=== PATIENT | male | born 1980 | race Hispanic/Latino ===

== ENCOUNTER 2017-04-25 22:16 | Inpatient (IN) | payer MEDICAID ==
--- NOTE | 2017-04-25 22:51 | ED PDOC ---
HPI: Psych/Substance Abuse Time Seen by Provider: 04/25/17 22:33 Chief Complaint (Nursing): Psychiatric Evaluation History Per: Patient (states he is depressed and has suicidal thoughts. He states that he would attempt to hang himself or cut his wrist. He denies hearing voices.) History/Exam Limitations: no limitations Onset/Duration Of Symptoms: Waxing/Waning Current Symptoms Are (Timing): Still Present Involuntary Hold By: None Past Medical History Reviewed: Historical Data, Nursing Documentation, Vital Signs Vital Signs: Last Vital Signs Temp 98.5 F 04/25/17 22:18 Pulse 102 H 04/25/17 22:18 Resp 18 04/25/17 22:18 BP 120/85 04/25/17 22:18 Pulse Ox 97 04/25/17 22:18 - Medical History PMH: Depression - Surgical History Surgical History: No Surg Hx - Family History Family History: States: No Known Family Hx - Living Arrangements Living Arrangements: Alone - Social History Current smoker - smoking cessation education provided: Yes Alcohol: Social - Immunization History Hx Tetanus Toxoid Vaccination: No Hx Influenza Vaccination: No Hx Pneumococcal Vaccination: No - Home Medications Home Medications: Ambulatory Orders Medication Instructions Recorded Citalopram [celEXA] 20 mg PO DAILY #30 tab 04/21/17 Gabapentin [Neurontin] 300 mg PO TID #90 cap 04/21/17 - Allergies Allergies/Adverse Reactions: Allergies Allergy/AdvReac Type Severity Reaction Status Date / Time No Known Allergies Allergy Unverified 04/21/17 17:52 Review of Systems ROS Statement: Except As Marked, All Systems Reviewed And Found Negative Psych: Positive for: Depression, Suicidal ideation. Negative for: Anxiety - Laboratory Results Result Diagrams: 04/25/17 23:05 04/25/17 23:05 - ECG O2 Sat by Pulse Oximetry: 97 Disposition - Clinical Impression Clinical Impression: Depression, Alcohol abuse - Patient ED Disposition Is Patient to be Admitted: Transfer of Care - Disposition Disposition: Transfer of Care Disposition Time: 23:48 Condition: FAIR Patient Signed Over To: Jim Haynes (pending crisis eval) - POA Present On Arrival: None
[2017-04-25 23:15] LABS: BASO # 0.1 K/uL (0.0-0.2); BASO % 0.6 % (0.0-2.0); EOS # 0.1 K/uL (0.0-0.7); EOS % 1.3 % (0.0-4.0); HEMATOCRIT 38.8 % (35.0-51.0); LYMPH # 2.9 K/uL (1.0-4.3); LYMPH % 31.9 % (20.0-40.0); MEAN CELL VOLUME 89.8 fl (80.0-94.0); MEAN CORPUSCULAR HGB CONC 33.4 g/dL (33.0-37.0); MEAN PLATELET VOLUME 10.3 fl (7.2-11.7); MONO # 0.5 K/uL (0.0-0.8); MONO % 5.5 % (0.0-10.0); NEUT # 5.5 K/uL (1.8-7.0); NEUT % 60.7 % (50.0-75.0); NRBC % 0.1 % (0.0-0.0); RED CELL DISTRIBUTION WIDTH 14.4 % (11.5-14.5)
[2017-04-25 23:21] LABS: ALCOHOL SERUM 210 mg/dl (0-10); BLOOD UREA NITROGEN 8 mg/dl (9-20); CALCIUM 8.8 mg/dL (8.4-10.2); CARBON DIOXIDE 22 mmol/L (22-30); CHLORIDE 109 mmol/L (98-107); GFR AFRICAN-AMERICAN > 60; GLUCOSE,RANDOM 97 mg/dL (75-110); POTASSIUM 3.8 MMOL/L (3.6-5.0); SODIUM 147 mmol/l (132-148)
[2017-04-26 01:49] LABS: RBC URINE 3 /hpf (0-3); URINE BILIRUBIN NEGATIVE (NEGATIVE); URINE BLOOD NEGATIVE (NEGATIVE); URINE COLOR YELLOW (YELLOW); URINE GLUCOSE (UA) NEG (Normal); URINE KETONE NEGATIVE (NEGATIVE); URINE LEUKOCYTE ESTERASE NEG Leu/uL (Negative); URINE PROTEIN NEGATIVE (NEGATIVE); URINE UROBILINOGEN 0.2-1.0 mg/dL (0.2-1.0); WBC URINE 1 /hpf (0-5)
--- NOTE | 2017-04-26 04:44 | ED PDOC ---
- Laboratory Results Result Diagrams: 04/25/17 23:05 04/25/17 23:05 - ECG O2 Sat by Pulse Oximetry: 97 (RA) Pulse Ox Interpretation: Normal Medical Decision Making Medical Decision Making: Time: 00:00 --Patient was transferred from Dr. Roth. --Pending crisis evaluation, reassessment, and disposition. Time: 04:58 --Admitted for depression by Dr. Yfn Bhat in Adult Psychiatry as an Inpatient. Disposition - Clinical Impression Clinical Impression: Depression, Alcohol abuse - POA Present On Arrival: None - Disposition Disposition: Admitted as In-Patient Disposition Time: 00:32 Condition: FAIR
[2017-04-26 06:02] VITALS: O2SAT 96
[2017-04-26] MEDS ORDERED: Alum-Mag Hydrox-Simethicone Susp (30 mL) PO PRN (12:31)
[2017-04-26 16:01] LABS: THYROID STIMULATING HORMONE 0.88 mIU/ML (0.46-4.68)
[2017-04-26] MEDS: Multivitamin With Minerals Tab PO SCH (16:41)
--- NOTE | 2017-04-26 18:22 | PCM.PSYCH ---
Initial Psychiatric Evaluation - Initial Psychiatric Evaluation Type of Admission: Voluntary Chief Complaint (in patient's own words): was feeling depressed no energy Patient's Reaction to Hospitalization: voluntary History of Present Illness and Precipitating Events: history depression history etoh history of non adherence, increasing signs and symptoms depression with suicidal ideation . was admitted via er Current Medications: Active Medications Generic Name Dose Route Start Last Admin Trade Name Freq PRN Reason Stop Dose Admin Al Hydrox/Mg Hydrox/Simethicone 30 ml 04/26/17 12:31 Maalox Plus 30 Ml PO Q6 PRN Indigestion / Heartburn Clonidine HCl 0.1 mg 04/26/17 12:24 Catapres PO Q4H PRN Symptoms of alcohol withdrawl Folic Acid 1 mg 04/26/17 12:30 04/26/17 16:42 Folic Acid PO 1 mg DAILY TERRANCE Administration Haloperidol 5 mg 04/26/17 12:29 Haldol PO QID PRN Agitation Haloperidol Lactate 5 mg 04/26/17 12:29 Haldol IVP Q6 PRN severe agitation/psychosis Ibuprofen 400 mg 04/26/17 12:32 Motrin Tab PO Q6 PRN pain 1-5 Ibuprofen 800 mg 04/26/17 12:33 Motrin Tab PO Q8 PRN pain 6-10 Lorazepam 1 mg 04/26/17 12:24 04/26/17 13:30 Ativan PO 1 mg Q4H PRN Administration Symptoms of alcohol withdrawl Multivitamins/Minerals 1 tab 04/26/17 12:30 04/26/17 16:41 Therapeutic-M Tab PO 1 tab DAILY TERRANCE Administration Thiamine HCl 100 mg 04/26/17 12:30 04/26/17 16:41 Vitamin B1 Tab PO 100 mg DAILY TERRANCE Administration Trazodone HCl 50 mg 04/26/17 12:24 Desyrel PO HS PRN Insomnia Past Psychiatric History - Past Psychiatric History Prior Professional Help: inpt out detox Prior Psychiatric Treatment: varied At what hospital: multiple History of ETOH/Drug Use: etoh since age 14 Pertinent Medical Hx (Current Medical&Sleep Prob, Allergies): Allergies Allergy/AdvReac Type Severity Reaction Status Date / Time No Known Allergies Allergy Unverified 04/21/17 17:52 Citalopram [celEXA] 20 mg PO DAILY #30 tab 04/21/17 Gabapentin [Neurontin] 300 mg PO TID #90 cap 04/21/17 Review of Systems - Psychiatric Psychiatric: Abnormal Sleep Pattern, Anhedonia, Change in Appetite, Depression Mental Status Examination - Personal Presentation Personal Presentation: Looks older than stated age - Affect Affect: Constricted - Motor Activity Motor Activity: Calm - Reliability in Providing Information Reliability in Providing Information: Fair - Mood Mood: Depressed - Obsessions/Compulsions Obsessions: No Compulsions: No - Cognitive Functions Orientation: Person, Place, Situation, Time Sensorium: Drowsy Attention/Concentration: Attentive Judgement: Imparied, as evidence by: Lack of insight into illness - Risk Risk: Suicidal, Diminished functioning - Strength & Assets Inventory Strength & Assets Inventory: Cooperative (non adherence) DSM 5 DX - DSM 5 DSM 5 Diagnosis: major depressive disorder moderate to severe substance use:etoh active - Recommended/Plan of Treatment Treatment Recommendations and Plan of Treatment: admission per attending md vital signs and clinical observation per protocol and per clincial status adjust meds per status staff to encourage to pt oob milieu and diet discharge planning in progress Projected ELOS: 5-7 days Prognosis: guarded Discharge Plan and Discharge Criteria: safety - Smoking Cessation Smoking Cessation Initiated: No Reason for not providing: deferred
[2017-04-26 23:20] LABS: FOLATE 17.5 ng/mL
--- NOTE | 2017-04-27 09:57 | CP.PCM.CON ---
History of Present Illness - History of Present Illness History of Present Illness: Reason for consult: per hospital protocol Chief Complaint: feeling suicidal HPI: 36 year old male with no past medical history admitted for suicidal ideation without plan. Patient has never felt this way before. He also admits to drinking vodka, a couple pints daily. Otherwise patient has no complaints. ROS: as per HPI, all other systems reviewed and negative by me PMSH: denies Family History: denies Social History: vodka every other day couple pints Home Medications: per reconciliation Allergies Vitals reviewed and stable Constitutional- cooperative, awake, alert. Head- NCAT, PERRL Eye- PERRL, normal accommodation ENT- normal exam, MMM. Neck- normal inspection, supple, no JVD Respiratory- decreased BS, no wheezes rales rhonchi Cardiovascular- RRR, +S1, +S2 no MRG GI/Abdominal- normal bowel sounds, soft Extremities Exam- normal capillary refill, normal inspection Neurological Exam- alert, oriented Labs 04/25/17 23:05 04/25/17 23:05 Assessment and Plan: 36 year old male with no past medical history admitted for suicidal ideation without plan. Patient has never felt this way before. He also admits to drinking vodka, a couple pints daily. Otherwise patient has no complaints. Alcohol Abuse Ativan for withdrawal sx Thiamine Folic acid MVI Suicidal Ideation per psych team Past Patient History - Past Social History Alcohol: Social - CARDIAC Hx Cardiac Disorders: No - PULMONARY Hx Respiratory Disorders: No Hx Tuberculosis: No - NEUROLOGICAL Hx Neurological Disorder: No HX Cerebrovascular Accident: No Hx Seizures: No - HEENT Hx HEENT Problems: No - RENAL Hx Chronic Kidney Disease: No Hx Dialysis: No - ENDOCRINE/METABOLIC Hx Endocrine Disorders: No - HEMATOLOGICAL/ONCOLOGICAL Hx Blood Disorders: No Hx Cancer: No Hx Human Immunodeficiency Virus (HIV): No - INTEGUMENTARY Hx Dermatological Problems: No - MUSCULOSKELETAL/RHEUMATOLOGICAL Hx Musculoskeletal Disorders: No - GASTROINTESTINAL Hx Gastrointestinal Disorders: No - GENITOURINARY/GYNECOLOGICAL Hx Genitourinary Disorders: No Hx Sexually Transmitted Disorders: No - PSYCHIATRIC Hx Depression: Yes Hx Physical Abuse: No Hx Sexual Abuse: No Hx Substance Use: Yes - SURGICAL HISTORY Hx Surgeries: No - ANESTHESIA Hx Anesthesia: No Meds Allergies/Adverse Reactions: Allergies Allergy/AdvReac Type Severity Reaction Status Date / Time No Known Allergies Allergy Unverified 04/21/17 17:52 - Medications Medications: Current Medications Al Hydrox/Mg Hydrox/Simethicone (Maalox Plus 30 Ml) 30 ml PO Q6 PRN PRN Reason: Indigestion / Heartburn Clonidine HCl (Catapres) 0.1 mg PO Q4H PRN PRN Reason: Symptoms of alcohol withdrawl Folic Acid (Folic Acid) 1 mg PO DAILY [facility] Last Admin: 04/26/17 16:42 Dose: 1 mg Haloperidol (Haldol) 5 mg PO QID PRN PRN Reason: Agitation Haloperidol Lactate (Haldol) 5 mg IVP Q6 PRN PRN Reason: severe agitation/psychosis Ibuprofen (Motrin Tab) 400 mg PO Q6 PRN PRN Reason: pain 1-5 Ibuprofen (Motrin Tab) 800 mg PO Q8 PRN PRN Reason: pain 6-10 Lorazepam (Ativan) 1 mg PO Q4H PRN PRN Reason: Symptoms of alcohol withdrawl Last Admin: 04/26/17 13:30 Dose: 1 mg Multivitamins/Minerals (Therapeutic-M Tab) 1 tab PO DAILY [facility] Last Admin: 04/26/17 16:41 Dose: 1 tab Thiamine HCl (Vitamin B1 Tab) 100 mg PO DAILY [facility] Last Admin: 04/26/17 16:41 Dose: 100 mg Trazodone HCl (Desyrel) 50 mg PO HS PRN PRN Reason: Insomnia Results - Vital Signs Recent Vital Signs: Last Vital Signs Temp 97.5 F L 04/27/17 08:56 Pulse 80 04/27/17 08:56 Resp 18 04/27/17 08:56 BP 132/85 04/27/17 08:56 Pulse Ox 96 04/26/17 05:58 - Labs Result Diagrams: 04/25/17 23:05 04/25/17 23:05 Labs: Laboratory Results - last 24 hr 04/26/17 04/26/17 04/26/17 15:17 15:17 15:17 Ammonia 22 Amylase 75 Lipase 77 Vitamin B12 572 Folate 17.5 Free T4 0.71 L TSH 3rd Generation 0.88 RPR 04/26/17 15:17 Ammonia Amylase Lipase Vitamin B12 Folate Free T4 TSH 3rd Generation RPR Nonreactive
[2017-04-27] MEDS: Multivitamin With Minerals Tab PO SCH (10:30)
--- NOTE | 2017-04-27 21:18 | PCM.PYCHPN ---
Psychiatric Progress Note - Psychiatric Progress Note Patient seen today, length of contact: chart reviewed , case discussed with team , 35min Patient Chief Complaint: was feeling depressed no energy Problems Identified/Issues Discussed: alteration in mood alteration in cogntion alteration in coping Medical Problems: per chart Diagnostic Results: per psychiatry per medicine per nursing per social work DSM 5 Symptoms Update: mood substance abuse etoh Medication Change: Yes (lexapro 5mg po day) Medical Record Reviewed: Yes Mental Status Examination - Cognitive Function Orientation: Person, Place, Situation, Time Attention: WNL Concentration: WNL Association: WNL Fund of Knowledge: WN Decription of patient's judgement and insights: impaired - Mood Mood: Depressed - Affect Affect: Constricted - Speech Speech: Soft - Homicidal Ideation Homicidal Ideation: No Goal/Treatment Plan - Goal/Treatment Plan Need for Continued Stay: Remain at risks for inpatient hospitalization, Severe depression anxiety, Severe functional impairment Progress Toward Problem(s) and Goals/Treatment Plan: admission per attending md vital signs and clinical observation per protocol and per clincial status lexapro 5mg po day' staff to encourage to pt oob milieu and diet discharge planning in progress Estimated Date of D/C: 05/06/17 - Smoking Cessation Smoking Cessation Initiated: No Reason for not providing: deferred
[2017-04-28] MEDS: Multivitamin With Minerals Tab PO SCH (09:53)
--- NOTE | 2017-04-28 11:58 | PCM.PYCHPN ---
Psychiatric Progress Note - Psychiatric Progress Note Patient seen today, length of contact: discussed with team Patient Chief Complaint: i want to go to a program Problems Identified/Issues Discussed: pt states he was kicked out of [facility]. he wants to go to another program to treat his alcohol dependence. he denies any withdrawal symptoms. denies suicidal thoughts currently. Medication Change: No ( ) Medical Record Reviewed: Yes Mental Status Examination - Cognitive Function Orientation: Person, Place, Situation, Time Attention: WNL Concentration: WNL Association: WNL Fund of Knowledge: WN Decription of patient's judgement and insights: fair - Mood Mood: Depressed - Affect Affect: Constricted - Speech Speech: Soft - Formal Thought Process Formal Thought Process: No Impairment - Suicidal Ideation Suicidal Ideation: No - Homicidal Ideation Homicidal Ideation: No Goal/Treatment Plan - Goal/Treatment Plan Need for Continued Stay: Remain at risks for inpatient hospitalization, Severe depression anxiety, Severe functional impairment Progress Toward Problem(s) and Goals/Treatment Plan: alcohol dependence needs further treatment continue current medications disposition planning Estimated Date of D/C: 05/06/17
[2017-04-29] MEDS: Multivitamin With Minerals Tab PO SCH (10:25)
--- NOTE | 2017-04-29 13:12 | PCM.PYCHPN ---
Psychiatric Progress Note - Psychiatric Progress Note Patient seen today, length of contact: in treatment team Patient Chief Complaint: i want to go to [facility] Problems Identified/Issues Discussed: pt denies withdrawal symptoms. wants to go to rehab. he is stating his depression is improved. no aggression or agitation. Medication Change: No ( ) Medical Record Reviewed: Yes Mental Status Examination - Cognitive Function Orientation: Person, Place, Situation, Time Attention: WNL Concentration: WNL Association: WNL Fund of Knowledge: [facility] Decription of patient's judgement and insights: fair - Mood Mood: Depressed - Affect Affect: Constricted - Speech Speech: Soft - Formal Thought Process Formal Thought Process: No Impairment - Suicidal Ideation Suicidal Ideation: No - Homicidal Ideation Homicidal Ideation: No Goal/Treatment Plan - Goal/Treatment Plan Need for Continued Stay: Remain at risks for inpatient hospitalization, Severe depression anxiety, Severe functional impairment Progress Toward Problem(s) and Goals/Treatment Plan: alcohol dependence needs further treatment continue current medications and will dc all ativan disposition planning Estimated Date of D/C: 05/06/17
[2017-04-30] MEDS: Multivitamin With Minerals Tab PO SCH (09:27)
--- NOTE | 2017-04-30 14:17 | PCM.PYCHPN ---
Psychiatric Progress Note - Psychiatric Progress Note Patient seen today, length of contact: discussed with team Patient Chief Complaint: i feel ok Problems Identified/Issues Discussed: pt denies withdrawal symptoms. c/o poor sleep. not helped by trazodone. still wants to go to rehab. visible in milieu. Medication Change: Yes ( ) Medical Record Reviewed: Yes Mental Status Examination - Cognitive Function Orientation: Person, Place, Situation, Time Attention: WNL Concentration: WNL Association: WNL Fund of Knowledge: [facility] Decription of patient's judgement and insights: fair - Mood Mood: Depressed - Affect Affect: Constricted - Speech Speech: Soft - Formal Thought Process Formal Thought Process: No Impairment Psychotic Thoughts and Behaviors: denies a/v hallucinations - Suicidal Ideation Suicidal Ideation: No - Homicidal Ideation Homicidal Ideation: No Goal/Treatment Plan - Goal/Treatment Plan Need for Continued Stay: Remain at risks for inpatient hospitalization, Severe depression anxiety, Severe functional impairment Progress Toward Problem(s) and Goals/Treatment Plan: alcohol dependence needs further treatment start doxpein for insomnia disposition planning Estimated Date of D/C: 05/06/17
[2017-05-01] MEDS: Multivitamin With Minerals Tab PO SCH (09:43)
--- NOTE | 2017-05-01 10:04 | PCM.PYCHPN ---
Psychiatric Progress Note - Psychiatric Progress Note Patient seen today, length of contact: discussed with team Patient Chief Complaint: i feel pretty good Problems Identified/Issues Discussed: pt denies withdrawal symptoms. his sleep is improving. he states he is not depressed. he states he knows he needs to stay sober and is looking for treatment. he denies having any suicidal thoughts. Medication Change: No Medical Record Reviewed: Yes Mental Status Examination - Cognitive Function Orientation: Person, Place, Situation, Time Attention: WNL Concentration: WNL Association: WNL Fund of Knowledge: [facility] Decription of patient's judgement and insights: fair - Mood Mood: Neutral - Affect Affect: Broad - Speech Speech: Soft - Formal Thought Process Formal Thought Process: No Impairment Psychotic Thoughts and Behaviors: denies a/v hallucinations - Suicidal Ideation Suicidal Ideation: No Plan: denies any suicidal or homicidal thoughts - Homicidal Ideation Homicidal Ideation: No Goal/Treatment Plan - Goal/Treatment Plan Need for Continued Stay: Remain at risks for inpatient hospitalization, Severe depression anxiety, Severe functional impairment Progress Toward Problem(s) and Goals/Treatment Plan: alcohol dependence depression mood is improved continue with current treatment refer to in rehab programs Estimated Date of D/C: 05/06/17
[2017-05-02] MEDS: Multivitamin With Minerals Tab PO SCH (09:05)
--- NOTE | 2017-05-02 09:51 | PCM.PYCHPN ---
Psychiatric Progress Note - Psychiatric Progress Note Patient seen today, length of contact: discussed with team Patient Chief Complaint: i feel better Problems Identified/Issues Discussed: pt looking forward to going to the program friday. denies feeling suicidal. depression improved. sleep improved. denies medication side effects. Medication Change: No Medical Record Reviewed: Yes Mental Status Examination - Cognitive Function Orientation: Person, Place, Situation, Time Attention: WNL Concentration: WNL Association: WNL Fund of Knowledge: [facility] Decription of patient's judgement and insights: fair - Mood Mood: Neutral - Affect Affect: Broad - Speech Speech: Soft - Formal Thought Process Formal Thought Process: No Impairment Psychotic Thoughts and Behaviors: denies a/v hallucinations - Suicidal Ideation Suicidal Ideation: No - Homicidal Ideation Homicidal Ideation: No Goal/Treatment Plan - Goal/Treatment Plan Need for Continued Stay: Remain at risks for inpatient hospitalization, Severe depression anxiety, Severe functional impairment Progress Toward Problem(s) and Goals/Treatment Plan: alcohol dependence depression mood is improved continue with current treatment discharge to inpt rehab on friday Estimated Date of D/C: 05/06/17
[2017-05-03] MEDS: Multivitamin With Minerals Tab PO SCH (08:51)
--- NOTE | 2017-05-03 10:29 | PCM.PYCHPN ---
Psychiatric Progress Note - Psychiatric Progress Note Patient seen today, length of contact: discussed with team Patient Chief Complaint: pt has been doing well on meds and sleeping well.pt denies side effects DSM 5 Symptoms Update: alcohol dependence depression Medication Change: No Medical Record Reviewed: Yes Mental Status Examination - Cognitive Function Orientation: Person, Place, Situation, Time Attention: WNL Concentration: WNL Association: WNL Fund of Knowledge: WNL - Mood Mood: Neutral - Affect Affect: Broad - Speech Speech: Soft - Formal Thought Process Formal Thought Process: No Impairment - Suicidal Ideation Suicidal Ideation: No - Homicidal Ideation Homicidal Ideation: No Goal/Treatment Plan - Goal/Treatment Plan Need for Continued Stay: Remain at risks for inpatient hospitalization, Severe depression anxiety, Severe functional impairment Progress Toward Problem(s) and Goals/Treatment Plan: will continue to stabilize the pt with meds and pt is scheduled for d/c on friday [facility] Estimated Date of D/C: 05/06/17
[2017-05-04] MEDS: Multivitamin With Minerals Tab PO SCH (09:03)
[2017-05-04 16:21] VITALS: BP 114/74; PULSE 67; RESP 18; TEMP 98.1
--- NOTE | 2017-05-04 18:26 | PCM.PYCHPN ---
Psychiatric Progress Note - Psychiatric Progress Note Patient seen today, length of contact: discussed with team Patient Chief Complaint: pt has been doing well on meds and sleeping well.pt denies side effects Medication Change: No Medical Record Reviewed: Yes Mental Status Examination - Cognitive Function Orientation: Person, Place, Situation, Time Attention: WNL Concentration: WNL Association: WNL Fund of Knowledge: WNL - Mood Mood: Neutral - Affect Affect: Broad - Speech Speech: Soft - Formal Thought Process Formal Thought Process: No Impairment - Suicidal Ideation Suicidal Ideation: No - Homicidal Ideation Homicidal Ideation: No Goal/Treatment Plan - Goal/Treatment Plan Need for Continued Stay: Remain at risks for inpatient hospitalization, Severe depression anxiety, Severe functional impairment Progress Toward Problem(s) and Goals/Treatment Plan: will continue to stabilize the pt with meds and pt is scheduled for d/c on friday [facility] Estimated Date of D/C: 05/06/17
== END 2017-05-05 15:15 | disposition home or self-care (01) | DRG 430 ==
LOC: H.ER 22:16 → H.ERHOLD 04-26 04:58 → H.PSYCH 04-26 06:29
PROVIDERS: ADMIT Psychiatry & Neurology Psychiatry; ATTEND Psychiatry & Neurology Psychiatry
PROC: GZHZZZZ Group Psychotherapy (ICD-10-PCS; principal; 2017-04-26)
PROC: GZ58ZZZ Individual Psychotherapy, Cognitive-Behavioral (ICD-10-PCS; 2017-04-27)
DX: F32.1 Major depressive disorder, single episode, moderate (principal); R45.851 Suicidal ideations; F10.229 Alcohol dependence with intoxication, unspecified; Y90.7 Blood alcohol level of 200-239 mg/100 ml; G47.00 Insomnia, unspecified; F17.200 Nicotine dependence, unspecified, uncomplicated